=== PATIENT | male | born 1950 | race Caucasian/White ===

== ENCOUNTER 2023-01-31 14:05 | Emergency (ER) | payer OTHER, MEDICARE ==
[~2023-01-31] VITALS: Ht 188 cm; Wt 109.0 kg
[2023-01-31 14:18] VITALS: BP 168/91
[2023-01-31 14:31] VITALS: BP 126/68
[2023-01-31] MEDS ORDERED: GLYBURIDE1.25 MG PO (15:06)
[2023-01-31] MEDS ORDERED: METFORMIN500 M2 PO (15:07)
[2023-01-31] MEDS ORDERED: LEVOTHYROXIN50 MCG PO (15:07)
[2023-01-31] MEDS ORDERED: LIPITOR10 M1 PO (15:08)
[2023-01-31 16:48] VITALS: BP 126/68
== END 2023-01-31 16:57 | disposition home or self-care (01) | DRG 552 ==
LOC: ED 14:05
DX: M54.6 Pain in thoracic spine (principal); E11.9 Type 2 diabetes mellitus without complications; I10 Essential (primary) hypertension; V43.52XA Car driver injured in collision with other type car in traffic accident, initial encounter